=== PATIENT | male | born 1960 | race Caucasian/White ===

== ENCOUNTER 2016-07-01 14:47 | Emergency (ER) | payer BC, MEDICARE ==
[2016-07-01] MEDS: NS 0.9% 1000 ML* 2,000 ML IV ONE (16:33)
--- NOTE | 2016-07-01 16:58 | RAD ---
HISTORY: Altered mental status COMPARISONS: August 06, 2005 VIEWS:1: Single frontal portable view of the chest at 4:26 PM FINDINGS: LINES AND TUBES: None. CARDIOMEDIASTINAL SILHOUETTE: The cardiomediastinal silhouette is normal for portable technique. PLEURA: The costophrenic angles are sharp. No pleural abnormalities are noted. LUNG PARENCHYMA: The lungs are clear. ABDOMEN: The upper abdomen is clear. There is no subphrenic gas. BONES AND SOFT TISSUES: No bone or soft tissue abnormalities are noted. IMPRESSION: NO ACTIVE CARDIOPULMONARY DISEASE.
--- NOTE | 2016-07-01 16:59 | RAD ---
HISTORY: Headache, weakness COMPARISONS: None TECHNIQUE: Multiple contiguous axial CT scans were obtained of the head without intravenous contrast. FINDINGS: HEMORRHAGE/INFARCT: There is no hemorrhage or acute infarct. MASSES/SHIFT: There is no mass or shift. EXTRA-AXIAL SPACES: There are no extra-axial fluid collections. SULCI AND VENTRICLES: The sulci and ventricles are normal in size and position for the patient's stated age. CEREBRUM: There are no focal parenchymal abnormalities. BRAINSTEM: There are no focal parenchymal abnormalities. CEREBELLUM: There are no focal parenchymal abnormalities. VESSELS: The vessels are grossly normal. PARANASAL SINUSES: There is mucosal thickening of ethmoid air cells and right maxillary sinus. ORBITS: The orbits are unremarkable. BONES AND SOFT TISSUE: No bone or soft tissue abnormalities are noted. OTHER: None IMPRESSION: NO ACUTE INTRACRANIAL PATHOLOGY.
[2016-07-01 17:20] VITALS: BP 111/62
--- NOTE | 2016-07-01 17:23 | RAD ---
HISTORY: Neck pain COMPARISONS: September 23, 2007 TECHNIQUE: Multiple contiguous axial CT scans were obtained of the cervical spine without intravenous contrast, with coronal and sagittal multiplanar reformations. FINDINGS: BRAIN: The visualized brain is unremarkable CENTRAL CANAL: Evaluation of the central canal is limited on CT technique; however, there is no obvious canalicular mass or epidural hemorrhage. ALIGNMENT: There is a scoliotic curvature of the spine VERTEBRAL BODIES: There is multilevel anterolateral marginal osteophyte formation. JOINTS: There is diffuse uncovertebral and facet osteoarthritic changes MUSCULATURE: Unremarkable INTERVERTEBRAL DISCS: There is diffuse loss of intervertebral disc height. AXIAL IMAGES: There is osseous neural foraminal narrowing greater on the left on the right most pronounced at C5-C6 and C6-C7 SOFT TISSUES: The visualized soft tissues of the neck are unremarkable. The prevertebral fat stripe is preserved. OTHER: None. IMPRESSION: DEGENERATIVE DISC DISEASE AND OSTEOARTHRITIS
[2016-07-01 17:29] LABS: Hematocrit 44 % (42-52); Hemoglobin 14.2 g/dl (14.0-18.0); Mean Corpuscular HGB Conc 33 g/dl (31-36); Mean Corpuscular Hemoglobin 30 pg (27-31); Mean Corpuscular Volume 91 fL (80-94); Mean Platelet Volume 9 um3 (7.4-10.4); Red Cell Distribution Width 14 % (10.5-15); White Blood Count 13.3 10^3/ul (3.5-10.8)
[2016-07-01 17:42] LABS: ALT 12 U/L (7-52); Albumin 4.3 g/dL (3.2-5.2); Alkaline Phosphatase 46 U/L (34-104); BUN/Creatinine Ratio 13.1 (8-20); Blood Urea Nitrogen 11 mg/dL (6-24); C Reactive Protein 79.95 mg/L (< 5.00); CO2 Carbon Dioxide 27 mmol/L (22-32); Calcium 9.9 mg/dL (8.6-10.3); Chloride 101 mmol/L (101-111); Creatine Kinase 79 U/L (10-223); EGFR African American 121.1 (>60); EGFR Non-African American 94.2 (>60); Globulin 3.2 g/dL (2-4); Glucose 89 mg/dL (70-100); Lipase 22 U/L (11.0-82.0); Magnesium 2.1 mg/dL (1.9-2.7); Sodium 134 mmol/L (133-145); Total Protein 7.5 g/dL (6.4-8.9)
[2016-07-01 17:45] LABS: Urine Bilirubin Negative (Negative); Urine Glucose Negative (Negative); Urine Nitrite Negative (Negative)
[2016-07-01 17:55] LABS: TSH (Thyroid Stimulating Horm) 1.35 mcIU/mL (0.34-5.60)
--- NOTE | 2016-07-01 19:32 | ED ---
Desi Moreno Matthew, scribed for Chase Crum MD on 07/01/16 at 1635 . Altered Mental Status - HPI Summary HPI Summary: A 56 y/o male presents to the ED with confusion since 08:30 this morning. Associated symptoms include general weakness, inability to stand, diaphoresis, syncopal episodes, decreased vision bilaterally, diffuse headache - described as crushing, left arm weakness/numbness that's worse than normal and left leg weakness/numbness that worse than normal. The patient denies fever, chills, urinary symptoms, abdominal pain, and nausea. His symptoms worsen when standing. According to his , he was a Hx of neck injury with baseline left arm and leg weakness. The patient also has a Hx of COPD and emphysema. The patient states that he doesn't feel well. He wasn't unable to get out of bed or even hold a conversation today. He normally is completely alert and oriented x3. He's on xanax and metoprolol and his palpitations have been well controlled. - History Of Current Complaint Chief Complaint: EDWeakness Stated Complaint: AMS Time Seen by Provider: 07/01/16 15:57 Hx Obtained From: Patient, Family/Order Entry Specialist - Onset/Duration: Still Present Timing: Constant Severity Initially: Moderate Severity Currently: Moderate Character: Confusion Aggravating Factor(s): Other - Standing Associated Signs And Symptoms: Positive: Headache, Weakness - generalized as well as right ar. Negative: Nausea, Fever - Allergies/Home Medications Allergies/Adverse Reactions: Allergies Allergy/AdvReac Type Severity Reaction Status Date / Time novicane Allergy GI Upset Uncoded 03/05/12 20:23 PMH/Surg Hx/FS Hx/Imm Hx Endocrine/Hematology History: Denies: Hx Anticoagulant Therapy, Hx Diabetes, Hx Thyroid Disease Cardiovascular History: Denies: Hx Hypertension, Hx Pacemaker/ICD Respiratory History: Denies: Hx Asthma, Hx Chronic Obstructive Pulmonary Disease (COPD) GI History: Reports: Other GI Disorders - diverticulitis History: Denies: Hx Renal Disease Neurological History: Denies: Hx Dementia, Hx Seizures Psychiatric History: Denies: Hx Substance Abuse - Cancer History Cancer Type, Location and Year: neck pain Infectious Disease History: Yes Infectious Disease History: Denies: Hx Hepatitis, Hx Human Immunodeficiency Virus (HIV), Traveled Outside the [place] in Last 30 Days - Family History Known Family History: Positive: Cardiac Disease, Diabetes, Other - The patient is adopted and doesn't have an extensive FHx - Social History Alcohol Use: Occasionally Substance Use Type: Reports: None Smoking Status (MU): Current Every Day Smoker Review of Systems Positive: Skin Diaphoresis Eyes: Other - decreased vision; inability to stand ENT: Negative Cardiovascular: Negative Respiratory: Negative Gastrointestinal: Negative Negative: Abdominal Pain, Diarrhea, Nausea Genitourinary: Negative Positive: no symptoms reported Musculoskeletal: Negative Skin: Negative Positive: Headache - diffuse, Weakness - generalized; left arm; left leg, Syncope Psychological: Other - Confused All Other Systems Reviewed And Are Negative: Yes Physical Exam Triage Information Reviewed: Yes Vital Signs On Initial Exam: Initial Vitals Temp Pulse Resp BP Pulse Ox 98.4 F 75 16 101/59 99 07/01/16 14:50 07/01/16 14:50 07/01/16 14:50 07/01/16 14:50 07/01/16 14:50 Vital Signs Reviewed: Yes Appearance: Positive: Ill-Appearing Skin: Positive: Warm, Dry Head/Face: Positive: Normal Head/Face Inspection Eyes: Positive: Other: - The patient is indicating his vision is blurry ENT: Positive: Normal ENT inspection Neck: Positive: Supple, Nontender Respiratory/Lung Sounds: Positive: Clear to Auscultation, Breath Sounds Present Cardiovascular: Positive: RRR Abdomen Description: Positive: Nontender, Soft Bowel Sounds: Positive: Present Neurological: Positive: Other - Leg weakness bilaterally. He was able to move his right leg minimally, but unable to move the left leg; Left arm showed effort against gravity and the patient was barely able to left the arm off of the stretcher; however his right arm could move freely. - [place]ushing Coma Scale Coma Scale Total: 15 Diagnostics - Vital Signs Vital Signs Temp Pulse Resp BP Pulse Ox 07/01/16 15:59 67 15 94 07/01/16 15:30 73 20 117/61 98 07/01/16 15:27 76 98 07/01/16 15:26 109/64 07/01/16 14:50 98.4 F 75 16 101/59 99 - Laboratory Lab Results: Lab Results 07/01/16 07/01/16 07/01/16 Range/Units 15:45 15:45 15:45 WBC 13.3 H (3.5-10.8) 10^3/ul RBC 4.80 (4.0-5.4) 10^6/ul Hgb 14.2 (14.0-18.0) g/dl Hct 44 (42-52) % MCV 91 (80-94) fL MCH 30 (27-31) pg MCHC 33 (31-36) g/dl RDW 14 (10.5-15) % Plt Count 206 (150-450) 10^3/ul MPV 9 (7.4-10.4) um3 Neut % (Auto) 75.9 (38-83) % Lymph % (Auto) 15.6 L (25-47) % Dupage % (Auto) 7.4 (1-9) % Eos % (Auto) 0.8 (0-6) % Baso % (Auto) 0.3 (0-2) % Absolute Neuts (auto) 10.1 H (1.5-7.7) 10^3/ul Absolute Lymphs (auto) 2.1 (1.0-4.8) 10^3/ul Absolute Monos (auto) 1.0 H (0-0.8) 10^3/ul Absolute Eos (auto) 0.1 (0-0.6) 10^3/ul Absolute Basos (auto) 0 (0-0.2) 10^3/ul Absolute Nucleated RBC 0.01 10^3/ul Nucleated RBC % 0.1 INR (Anticoag Therapy) 1.02 (0.89-1.11) APTT 30.3 (26.0-36.3) seconds Sodium 134 (133-145) mmol/L Potassium TNP Chloride 101 (101-111) mmol/L Carbon Dioxide 27 (22-32) mmol/L Anion Gap TNP BUN 11 (6-24) mg/dL Creatinine 0.84 (0.67-1.17) mg/dL Est GFR ( Amer) 121.1 (>60) Est GFR (Non-Af Amer) 94.2 (>60) BUN/Creatinine Ratio 13.1 (8-20) Glucose 89 (70-100) mg/dL Calcium 9.9 (8.6-10.3) mg/dL Magnesium 2.1 (1.9-2.7) mg/dL Total Bilirubin 0.60 (0.2-1.0) mg/dL AST TNP ALT 12 (7-52) U/L Alkaline Phosphatase 46 (34-104) U/L Total Creatine Kinase 79 (10-223) U/L CK-MB (CK-2) 1.6 (0.6-6.3) ng/mL Troponin I 0.00 (<0.04) ng/mL C-Reactive Protein 79.95 H (< 5.00) mg/L B-Natriuretic Peptide ( - 100) pg/mL Total Protein 7.5 (6.4-8.9) g/dL Albumin 4.3 (3.2-5.2) g/dL Globulin 3.2 (2-4) g/dL Albumin/Globulin Ratio 1.3 (1-3) Lipase 22 (11.0-82.0) U/L TSH 1.35 (0.34-5.60) mcIU/mL Urine Color Urine Appearance Urine pH (5-9) Ur Specific [place] (1.010-1.030) Urine Protein (Negative) Urine Ketones (Negative) Urine Blood (Negative) Urine Nitrate (Negative) Urine Bilirubin (Negative) Urine Urobilinogen (Negative) Ur Leukocyte Esterase (Negative) Urine Glucose (Negative) 07/01/16 07/01/16 Range/Units 15:45 17:25 WBC (3.5-10.8) 10^3/ul RBC (4.0-5.4) 10^6/ul Hgb (14.0-18.0) g/dl Hct (42-52) % MCV (80-94) fL MCH (27-31) pg MCHC (31-36) g/dl RDW (10.5-15) % Plt Count (150-450) 10^3/ul MPV (7.4-10.4) um3 Neut % (Auto) (38-83) % Lymph % (Auto) (25-47) % Dupage % (Auto) (1-9) % Eos % (Auto) (0-6) % Baso % (Auto) (0-2) % Absolute Neuts (auto) (1.5-7.7) 10^3/ul Absolute Lymphs (auto) (1.0-4.8) 10^3/ul Absolute Monos (auto) (0-0.8) 10^3/ul Absolute Eos (auto) (0-0.6) 10^3/ul Absolute Basos (auto) (0-0.2) 10^3/ul Absolute Nucleated RBC 10^3/ul Nucleated RBC % INR (Anticoag Therapy) (0.89-1.11) APTT (26.0-36.3) seconds Sodium (133-145) mmol/L Potassium Chloride (101-111) mmol/L Carbon Dioxide (22-32) mmol/L Anion Gap BUN (6-24) mg/dL Creatinine (0.67-1.17) mg/dL Est GFR ( Amer) (>60) Est GFR (Non-Af Amer) (>60) BUN/Creatinine Ratio (8-20) Glucose (70-100) mg/dL Calcium (8.6-10.3) mg/dL Magnesium (1.9-2.7) mg/dL Total Bilirubin (0.2-1.0) mg/dL AST ALT (7-52) U/L Alkaline Phosphatase (34-104) U/L Total Creatine Kinase (10-223) U/L CK-MB (CK-2) (0.6-6.3) ng/mL Troponin I (<0.04) ng/mL C-Reactive Protein (< 5.00) mg/L B-Natriuretic Peptide 231 H ( - 100) pg/mL Total Protein (6.4-8.9) g/dL Albumin (3.2-5.2) g/dL Globulin (2-4) g/dL Albumin/Globulin Ratio (1-3) Lipase (11.0-82.0) U/L TSH (0.34-5.60) mcIU/mL Urine Color Straw Urine Appearance Clear Urine pH 7.0 (5-9) Ur Specific [place] 1.003 L (1.010-1.030) Urine Protein Negative (Negative) Urine Ketones Negative (Negative) Urine Blood Negative (Negative) Urine Nitrate Negative (Negative) Urine Bilirubin Negative (Negative) Urine Urobilinogen Negative (Negative) Ur Leukocyte Esterase Negative (Negative) Urine Glucose Negative (Negative) Result Diagrams: 07/01/16 15:45 07/01/16 15:45 Lab Statement: Any lab studies that have been ordered have been reviewed, and results considered in the medical decision making process. - Radiology CXR Xray Interpretation: No Acute Changes - IMPRESSION: NO ACTIVE CARDIOPULMONARY DISEASE. Radiology Interpretation Completed By: Radiologist - CT Brain CT CT Interpretation: No Acute Changes - IMPRESSION: NO ACUTE INTRACRANIAL PATHOLOGY. CT Interpretation Completed By: Radiologist C-Spine CT CT Interpretation: No Acute Changes - IMPRESSION: DEGENERATIVE DISC DISEASE AND OSTEOARTHRITIS CT Interpretation Completed By: Radiologist - EKG 15:11 Cardiac Rate: NL - 70 bpm EKG Rhythm: Sinus Rhythm Ectopy: None EKG Interpretation: Concave Up ST elevation in V3-V6 Re-Evaluation - Re-Evaluation First Eval Re-Evaluation Time: 18:16 Change: Improved Comment: The patient is alert and conversing. At the start of the re-evaluation the patient stated his headache was gone; however during our conversation his headache returned. He states that his headache lasts for approximately 10 minutes, then he feels sleepy and while sleeping his left shoulder twitches. This happens cyclically about every 40 minutes. Altered Mental Statu Course/Dx - Course Assessment/Plan: DR BECKMAN, NEUROLOGY WILL EVALUATE PATIENT IN ED. DISPOSITION PENDING AT SHIFT CHANGE. STABLE IN ED. - Diagnoses Discharge Diagnoses: Weakness, Headache - Provider Notifications Discussed Care Of Patient With: Dr. Payne (Hospitalist) at 18:19 -- Notified of patient's history. Dr. Ervin (Neurology) at 18:38 -- Notified of patient' s history and will evaluate the patient in the ED. Discharge - Discharge Plan Condition: Stable Disposition: OTHER Discharge Disposition Comment: C Referrals: No Primary Care Phys,NOPCP [Primary Care Provider] - The documentation as recorded by the Desi brandon Matthew accurately reflects the service I personally performed and the decisions made by me, Chaes Crum MD.
--- NOTE | 2016-07-01 21:12 | CONSULT ---
Consult Consult: 07/01/16 neurology consult 56 yo RHM, presenting since this am with a constellation of issues, including: confusion, intermittent headaches and diffuse visual changes (per the ED note; he did not bring this up at all), passing out (due to pain from a mónica anal pimple or abscess that he says is the main reason why he came to the ED in the first place, but which is not emphasized in the ED records), diffuse weakness ( superimposed on baseline chronic left sided sensorimotor asymmetry he attributes to a 2007 neck injury no surgery ormyelopathy on imaging, but on disability as a result of this issue). He at baseline ambulates indepently despite saying the left leg is , denies bulbar or bowel or bladder issues. He is on both metoprolol and Xanax for palpitations (latter not for anxiety). He is accompanied in the ED by multiple family members. Allergies/Meds - per jun PMH - copd, palpitations, bladder cancer (localized; surgery only) FH - adopted [place] - no etoh or drugs; positive tobacco use; disability as per hpi ROS - 10 point review as per hpi , otherwise negative general Examination: no apparent distress, no edema, male of stated age Neurologic Examination Mental Status: alert and oriented; affect flat but jocular at other times, no neglect, fluent speech Cranial Nerves: Funduscopy shows sharp discs; II-XII intact save mild 0.5mm pupillary asymmetry (both reactive, no Horners) and subjective left cheek sensory asymmetrey; whalen full to confrontation (psychomotor slowing with testing but accurate) Motor: normal bulk, tone; power testing diffusely poor effort/give way, more overtly on the left; intermittent left drift without pronation; no tremor Sensory: vibration and touch decreased left arm and leg Reflexes: 2 throughout symmetrically. 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 His head and cervical spine CT (and remote mri of latter) imaging is negative. He does have an elevated WBC and CRP and complains of a mónica rectal wound or infection that will require ED evaluation and appropriate treatment. From a neuro standpoint, his complaints and psychogenic and he can be discharged home.
--- NOTE | 2016-07-12 23:25 | ED ---
I, Adonis Robertson, scribed for Alex William MD on 07/01/16 at 2224 . Re-Evaluation - Re-Evaluation First Eval Re-Evaluation Time: 18:16 Change: Improved Comment: The patient is alert and conversing. At the start of the re-evaluation the patient stated his headache was gone; however during our conversation his headache returned. He states that his headache lasts for approximately 10 minutes, then he feels sleepy and while sleeping his left shoulder twitches. This happens cyclically about every 40 minutes. Course/Dx - Diagnoses Provider Diagnoses: Weakness, Headache - Provider Notifications Discussed Care Of Patient With: Dr. Payne (Hospitalist) at 18:19 -- Notified of patient's history. Dr. Ervin (Neurology) at 18:38 -- Notified of patient' s history and will evaluate the patient in the ED. The documentation as recorded by the sachaibMarcelo garay Michael accurately reflects the service I personally performed and the decisions made by me, Alex William MD.
== END 2016-07-01 22:35 | disposition home or self-care (01) ==
LOC: ED 14:47
DX: R53.1 Weakness (principal); R41.0 Disorientation, unspecified; R51 Headache; F17.210 Nicotine dependence, cigarettes, uncomplicated
CPT/HCPCS: 36415; 70450; 71010; 72125; 80053; 81003; 82550; 82553; 83605; 83690; 83735; 83880; 84443; 84484; 85025; 85610; 85730; 86140; 93005; 96360; 99282

== ENCOUNTER 2017-07-02 17:16 | Observation (INO) | payer MEDICARE ==
[2017-07-02] MEDS ORDERED: Aspirin TAB* 325 MG PO ONE (18:22)
--- NOTE | 2017-07-02 18:42 | RAD ---
INDICATION: 2 days of chest pain COMPARISON: Chest x-ray dated July 01, 2016 TECHNIQUE: Single AP portable view of the chest was obtained. FINDINGS: Image quality is compromised due to the relative inferiority of a portable chest x-ray. The heart and mediastinum exhibit normal size and contour. The lungs are grossly clear. There is no evidence of a large pleural effusion. Visualized bones are normal for the patient's age. IMPRESSION: No radiographic evidence for acute cardiopulmonary abnormality on this portable chest x-ray.
[2017-07-02 19:01] LABS: ABS Basophils 0.1 10^3/ul (0-0.2); ABS Eosinophils 0.3 10^3/ul (0-0.6); ABS Monocytes 0.8 10^3/ul (0-0.8); ABS Neutrophils 4.8 10^3/ul (1.5-7.7); ABS Nucleated RBC 0 10^3/ul; Eosinophil % 3.5 % (0-6); Hematocrit 41 % (42-52); Lymphocyte % 33.4 % (25-47); Mean Corpuscular HGB Conc 35 g/dl (31-36); Mean Corpuscular Hemoglobin 31 pg (27-31); Mean Corpuscular Volume 90 fL (80-94); Nucleated Red Blood Cells % 0; Platelet Count 193 10^3/ul (150-450); Red Blood Count 4.53 10^6/ul (4.0-5.4); Red Cell Distribution Width 14 % (10.5-15)
[2017-07-02 19:08] LABS: INR 0.94 (0.77-1.02)
[2017-07-02 19:20] LABS: EGFR Non-African American 87.8 (>60)
--- NOTE | 2017-07-02 21:00 | ED ---
London Moreno Julia, scribed for Salvador Torres on 07/02/17 at 1808 . HPI Chest Pain - HPI Summary HPI Summary: This patient is a 57 year old M presenting to [facility] with a chief complaint of sudden palpitations and chest pressure gradually worsening for the two to three days becoming more frequent. He report chest pressure as if someone is sitting on his chest. He reports he has had sudden palpitations since 1993 with no clear diagnosis. Patient denies lower extremity edema and current pain. The patient rates the pain 6/10 in severity. Symptoms alleviated by medications. Symptoms return when medications wear off. Patient is prescribed metoprolol and alprazolam (.25mg x3 daily). Pt states previous catheterizations revealed no blockages. Pt denies hx of anxiety. Pt has hx of hypotension. - History of Current Complaint Chief Complaint: EDChestPainROMI Time Seen by Provider: 07/02/17 18:02 Hx Obtained From: Patient Onset/Duration: Started Hours Ago Timing: Intermittent Pain Intensity: 6 Pain Scale Used: 0-10 Numeric Character: Fast, Heaviness, Pressure/Squeezing Alleviating Factor(s): Medication Related History: Similar Episode/Dx as: - palpitations - Allergy/Home Medications Allergies/Adverse Reactions: Allergies Allergy/AdvReac Type Severity Reaction Status Date / Time novicane Allergy GI Upset Uncoded 03/05/12 20:23 Home Medications: Home Medications ALPRAZolam TAB* [Xanax TAB*] 0.25 mg PO TID PRN 07/02/17 [History Confirmed ] Acetaminophen [Acetaminophen Extra Strength] 500 mg PO Q4H PRN 07/02/17 [ History Confirmed 07/02/17] Albuterol HFA INHALER* [Ventolin HFA Inhaler*] 1 puff INH Q4H PRN 07/02/17 [ History Confirmed 07/02/17] HYDROcodone/ACETAMIN 5-325 MG* [[place] 5-325 TAB*] 1 tab PO Q4H PRN 07/02/17 [ History Confirmed 07/02/17] Metoprolol Tartrate TAB* [Lopressor TAB*] 50 mg PO TID 07/02/17 [History Confirmed 07/02/17] PMH/Surg Hx/FS Hx/Imm Hx Endocrine/Hematology History: Denies: Hx Anticoagulant Therapy, Hx Diabetes, Hx Thyroid Disease Cardiovascular History: Reports: Hx Hypotension Denies: Hx Hypertension, Hx Pacemaker/ICD Respiratory History: Denies: Hx Asthma, Hx Chronic Obstructive Pulmonary Disease (COPD) GI History: Reports: Other GI Disorders - diverticulitis History: Denies: Hx Renal Disease Neurological History: Denies: Hx Dementia, Hx Seizures Psychiatric History: Denies: Hx Anxiety, Hx Substance Abuse - Cancer History Cancer Type, Location and Year: neck pain Infectious Disease History: No Infectious Disease History: Denies: Hx Hepatitis, Hx Human Immunodeficiency Virus (HIV), Traveled Outside the [place] in Last 30 Days - Family History Known Family History: Positive: Cardiac Disease, Diabetes, Other - The patient is adopted and doesn't have an extensive FHx - Social History Alcohol Use: Occasionally Substance Use Type: Reports: None Smoking Status (MU): Current Every Day Smoker Review of Systems Positive: Palpitations, Chest Pain Negative: Edema All Other Systems Reviewed And Are Negative: Yes Physical Exam - Summary Physical Exam Summary: Appearance: Well appearing, no pain distress Skin: warm, dry, reflects adequate perfusion Head/face: normal Eyes: EOMI, ELIJAH ENT: normal Neck: supple, non-tender Respiratory: CTA, breath sounds present Cardiovascular: RRR, pulses symmetrical Abdomen: non-tender, soft Bowel: present Musculoskeletal: normal, strength/ROM intact Neuro: normal, sensory motor intact, A&Ox3 Triage Information Reviewed: Yes Vital Signs On Initial Exam: Initial Vitals Temp Pulse Resp BP Pulse Ox 99.3 F 79 20 100/55 96 07/02/17 17:23 07/02/17 17:23 07/02/17 17:23 07/02/17 17:23 07/02/17 17:23 Vital Signs Reviewed: Yes Diagnostics - Vital Signs Vital Signs Temp Pulse Resp BP Pulse Ox 07/02/17 17:23 99.3 F 79 20 100/55 96 - Laboratory Lab Results: Lab Results 07/02/17 07/02/17 07/02/17 Range/Units 18:38 18:38 18:38 WBC 9.0 (3.5-10.8) 10^3/ul RBC 4.53 (4.0-5.4) 10^6/ul Hgb 14.0 (14.0-18.0) g/dl Hct 41 L (42-52) % MCV 90 (80-94) fL MCH 31 (27-31) pg MCHC 35 (31-36) g/dl RDW 14 (10.5-15) % Plt Count 193 (150-450) 10^3/ul MPV 8.0 (7.4-10.4) um3 Neut % (Auto) 53.8 (38-83) % Lymph % (Auto) 33.4 (25-47) % [place] % (Auto) 8.6 H (0-7) % Eos % (Auto) 3.5 (0-6) % Baso % (Auto) 0.7 (0-2) % Absolute Neuts (auto) 4.8 (1.5-7.7) 10^3/ul Absolute Lymphs (auto) 3.0 (1.0-4.8) 10^3/ul Absolute Monos (auto) 0.8 (0-0.8) 10^3/ul Absolute Eos (auto) 0.3 (0-0.6) 10^3/ul Absolute Basos (auto) 0.1 (0-0.2) 10^3/ul Absolute Nucleated RBC 0 10^3/ul Nucleated RBC % 0 INR (Anticoag Therapy) 0.94 (0.77-1.02) APTT 23.5 L (26.0-36.3) seconds D-Dimer, Quantitative < 200 (Less Than 230) ng/mL Sodium (139-145) mmol/L Potassium (3.5-5.0) mmol/L Chloride (101-111) mmol/L Carbon Dioxide (22-32) mmol/L Anion Gap (2-11) mmol/L BUN (6-24) mg/dL Creatinine (0.67-1.17) mg/dL Est GFR ( Amer) (>60) Est GFR (Non-Af Amer) (>60) BUN/Creatinine Ratio (8-20) Glucose (70-100) mg/dL Lactic Acid (0.5-2.0) mmol/L Calcium (8.6-10.3) mg/dL Magnesium (1.9-2.7) mg/dL Total Bilirubin (0.2-1.0) mg/dL AST (13-39) U/L ALT (7-52) U/L Alkaline Phosphatase (34-104) U/L Troponin I (<0.04) ng/mL B-Natriuretic Peptide 32 ( - 100) pg/mL Total Protein (6.4-8.9) g/dL Albumin (3.2-5.2) g/dL Globulin (2-4) g/dL Albumin/Globulin Ratio (1-3) 07/02/17 07/02/17 Range/Units 18:38 18:38 WBC (3.5-10.8) 10^3/ul RBC (4.0-5.4) 10^6/ul Hgb (14.0-18.0) g/dl Hct (42-52) % MCV (80-94) fL MCH (27-31) pg MCHC (31-36) g/dl RDW (10.5-15) % Plt Count (150-450) 10^3/ul MPV (7.4-10.4) um3 Neut % (Auto) (38-83) % Lymph % (Auto) (25-47) % [place] % (Auto) (0-7) % Eos % (Auto) (0-6) % Baso % (Auto) (0-2) % Absolute Neuts (auto) (1.5-7.7) 10^3/ul Absolute Lymphs (auto) (1.0-4.8) 10^3/ul Absolute Monos (auto) (0-0.8) 10^3/ul Absolute Eos (auto) (0-0.6) 10^3/ul Absolute Basos (auto) (0-0.2) 10^3/ul Absolute Nucleated RBC 10^3/ul Nucleated RBC % INR (Anticoag Therapy) (0.77-1.02) APTT (26.0-36.3) seconds D-Dimer, Quantitative (Less Than 230) ng/mL Sodium 137 L (139-145) mmol/L Potassium 3.8 (3.5-5.0) mmol/L Chloride 104 (101-111) mmol/L Carbon Dioxide 26 (22-32) mmol/L Anion Gap 7 (2-11) mmol/L BUN 14 (6-24) mg/dL Creatinine 0.89 (0.67-1.17) mg/dL Est GFR ( Amer) 112.9 (>60) Est GFR (Non-Af Amer) 87.8 (>60) BUN/Creatinine Ratio 15.7 (8-20) Glucose 110 H (70-100) mg/dL Lactic Acid 0.9 (0.5-2.0) mmol/L Calcium 9.5 (8.6-10.3) mg/dL Magnesium 2.0 (1.9-2.7) mg/dL Total Bilirubin 0.50 (0.2-1.0) mg/dL AST 19 (13-39) U/L ALT 17 (7-52) U/L Alkaline Phosphatase 38 (34-104) U/L Troponin I 0.00 (<0.04) ng/mL B-Natriuretic Peptide ( - 100) pg/mL Total Protein 6.8 (6.4-8.9) g/dL Albumin 4.0 (3.2-5.2) g/dL Globulin 2.8 (2-4) g/dL Albumin/Globulin Ratio 1.4 (1-3) Result Diagrams: 07/02/17 18:38 07/02/17 18:38 Lab Statement: Any lab studies that have been ordered have been reviewed, and results considered in the medical decision making process. - Radiology CXR Radiology Interpretation Completed By: Radiologist - No radiographic evidence for acute cardiopulmonary abnormality on this portable chest x-ray. ED Physician has reviewed this report. - EKG 1726 Cardiac Rate: NL - at 66 BPM EKG Rhythm: Sinus Rhythm EKG Interpretation: early repolarization EKG Comparison: No Significant Change Re-Evaluation - Re-Evaluation 1 Re-Evaluation Time: 20:40 Comment: Discussed results with patient. Patient will be admitted. Chest Pain Course/Dx - Course Course Of Treatment: Pt presents with sudden palpitations and chest pressure gradually worsening for the two to three days becoming more frequent. He report chest pressure as if someone is sitting on his chest. He reports he has had sudden palpitations since 1993 with no clear diagnosis. Symptoms alleviated by medications. Bloodwork is WNL. EKG has no significant changes from previous EKG. CXR is unremarkable. Pt is given ASA. Dr. Pichardo agrees to admit pt. - Chest Pain Differential Diagnosis/HQI/PQRI: Acute ID, ACS, Chest Wall, Lower Respiratory Infection - Diagnoses Provider Diagnoses: Chest pain, rule out acute myocardial infarction, Unstable angina - Provider Notifications Discussed Care Of Patient With: Trever Pichardo - hospitalist Time Discussed With Above Provider: 20:20 Instructed by Provider To: Admit As Inpatient Discharge - Sign-Out/Discharge Documenting (check all that apply): Discharge - admit - Discharge Plan Condition: Fair Disposition: ADMITTED TO [facility] Referrals: No Primary Care Phys,NOPCP [Primary Care Provider] - - Billing Disposition and Condition Condition: FAIR Disposition: [facility] The documentation as recorded by the London brandon Julia accurately reflects the service I personally performed and the decisions made by Brian cardenas Emmanuel.
[2017-07-02] MEDS ORDERED: Ondansetron INJ* 2 MG/ML VIAL IV PRN (21:17)
[2017-07-02] MEDS ORDERED: Acetaminophen TAB* 325 MG PO PRN (21:17)
[2017-07-02] MEDS ORDERED: ALPRAZolam TAB* 0.25 MG PO PRN (21:20)
[2017-07-02] MEDS ORDERED: Albuterol HFA INHALER* 8 gm MDI INH PRN (21:20)
[2017-07-02] MEDS ORDERED: NS 0.9% 1000 ML* 1,000 ML IV SCH (21:30)
[2017-07-02] MEDS ORDERED: Aspirin 81 mg CHEW TAB* 81 MG TAB.CHEW ONE (21:33)
[2017-07-02] MEDS: Heparin VIAL(*) 5000 UNITS/ML VIAL (FIVE THOUSAND) SUBCUT SCH (23:15)
[2017-07-02] MEDS: Nicotine PATCH 21 MG/24 HR* PATCH TRANSDERM SCH (23:15)
[2017-07-02] MEDS ORDERED: HYDROcodone/ACETAMIN 5-325 MG* 1 TAB PO PRN (23:19)
--- NOTE | 2017-07-03 01:12 | HP ---
CC: Dr. Cameron* HISTORY AND PHYSICAL: DATE OF ADMISSION: 07/02/17 PRIMARY CARE PROVIDER: Dr. Cameron from [facility]. ATTENDING PHYSICIAN WHILE IN THE HOSPITAL: Dr. Trever Pichardo * (report dictated by Ld Levy NP). CHIEF COMPLAINT: 1. Palpitations. 2. Chest pain. HISTORY OF PRESENT ILLNESS: Mr. Patton is a 57-year-old male patient. He carries a history of COPD, who states that the last week he has been having increasing palpitations and he also states that he has been having intermittent chest pressure. The patient states that the symptoms have been getting much worse and that he has been having increasing frequency of palpitations. He has had known palpitations for some time. He has been on beta-blockers t.i.d. for this. He states that yesterday he had discomfort and he had palpitations when he was working in his garage. He states he also noted that he has been having shortness of breath with exertion. He states he is continuing to smoke. He states the palpitations do not correlate with him exerting himself and he states the chest pressure happens during the palpitations and he said he did not have any exertional chest pain. He said that couple of nights ago, he was moving a four hollingsworth and pushing it up a ramp and what he got was really short of breath, but he did not get palpitations, he did not get chest pain with this. He did admit to having no nausea, no diaphoresis. Denies having any abdominal pain. Denies any fevers or chills. There has been no cold symptoms or URI symptoms. Denies having any fevers or chills. The patient states that he was concerned because of the discomfort and he was evaluated because of the history of his smoking, his age. We were asked to evaluate for admission due to the fact that he is having chest discomfort and also palpitations. He is chest pain free now and not having any palpitations now. PAST MEDICAL HISTORY: Significant for: 1. COPD. 2. Bladder cancer. 3. Palpitations. PAST SURGICAL HISTORY: 1. The patient has had a heart catheterization. He was told that his arteries were clean. We will try to get those records. 2. He has had a tracheostomy due to complications from a saliva gland infection. 3. He has had bladder surgery. 4. He has had a cystoscopy. MEDICATIONS: The home meds include: 1. [place] 1 tablet every 4 hours as needed. 2. Tylenol 500 mg every 4 hours as needed. 3. Lopressor 50 mg p.o. t.i.d. 4. Ventolin 1 puff inhaled every 4 hours as needed. 5. Xanax 0.25 mg p.o. t.i.d. as needed. ALLERGIES TO MEDICATIONS: Include NOVOCAINE. FAMILY HISTORY: Unknown as he is adopted. SOCIAL HISTORY: He is still smoking about a pack a day for 44 years. He does not drink alcohol. He does it very rarely. His surrogate decision maker is his . REVIEW OF SYSTEMS: There is no documented fever. He denied having any significant weight change. There was no double vision. He denies having any ear discharge. There is no rhinorrhea. There was no sore throat, no thyroid enlargement. Denies having any chest pain. There is no orthopnea. He does admit to having dyspnea on exertion. He denies having any abdominal pain. There is no nausea, no vomiting, no dysuria, no frequency. There was no seizure , no loss of consciousness, no pruritus, and no skin ulcerations. Review of 14 systems was completed, all others negative. PHYSICAL EXAMINATION GENERAL: At this time, Mr. Patton is a 57-year-old male patient. He appears to be well nourished, well developed. He does not appear to be in any acute distress. VITAL SIGNS: Blood pressure 111/66, pulse 68, respirations 18, O2 saturation 96 %, temperature 99.3. HEENT: Head: Atraumatic, normocephalic. Eyes: EOMs are intact. Sclerae anicteric and not pale. Throat: Oral mucosa appears to be moist. No oropharyngeal erythema. NECK: Supple. LUNGS: Clear to auscultation bilaterally. There was no wheezes, rales, or rhonchi. HEART: Sounds S1, S2. Regular rate and rhythm. No murmurs, rubs, or gallops. ABDOMEN: Soft. It was flat, nontender. Bowel sounds were present. EXTREMITIES: Pulses were 2+ throughout. The patient was moving all 4 extremities with 5/5 strength. NEUROLOGICAL: The patient is awake, he is alert, he is oriented x3. Tongue midline. Supervisor Counseling And Guidance are equal. No gross focal deficits. SKIN: Intact. DIAGNOSTIC STUDIES/LAB DATA: WBC 9.0, RBC of 4.53, hemoglobin 14.0, hematocrit of 41, platelet count of 193. INR 0.94, PTT of 22.5. D-dimer less than 200. Sodium 137, potassium 3.8, chloride 104, bicarb 26, BUN 14, creatinine of 0.89, glucose 110, lactate 0.9, calcium 9.5, mag 2.0, albumin 4.0. Total bili is 0.5, AST 19, ALT 17, alk phos 30. Troponin 0. BNP 32, albumin 4. He did have a chest x-ray obtained today, which revealed no radiographic evidence for acute cardiopulmonary abnormality on his portable x-ray. There was an EKG obtained today as well, which showed a normal sinus rhythm, rate of 66, with LVH. He did have elevations in V4, 5 and 6 along with 2, 3, aVF, but if we look back previously, he has had that similar elevation, it looks like J point elevation, which he has had in the past. Old medical records were reviewed. ASSESSMENT AND PLAN: Mr. Patton is a 57-year-old male patient coming into the ED today with complaints of palpitations and chest discomfort. We were asked to evaluate for admission. He will be admitted under observation status for: 1. Chest pain. At this point, I will go ahead and put the patient on aspirin daily. Continue his beta-shital. We will check lipid panel, A1c, cycle his troponins. We will get 2 more troponins. We will get order of stress test tomorrow. We will order an EKG in the morning and we will continue to follow. 2. Palpitations. He will be placed on telemetry. His mag was stable. I am checking a TSH. We will go ahead and continue his beta-shital. Follow with primary. 3. Chronic obstructive pulmonary disease. Continue p.r.n. albuterol. 4. Tobacco abuse. I have ordered a nicotine patch. 5. Bladder cancer. Follow with primary. 6. DVT prophylaxis: He will be placed on heparin subcu. 7. Code status: Full code. 8. Fluids, electrolytes, and nutrition. He can have a heart healthy diet and he is n.p.o. after midnight. TIME SPENT: On the admission was 60 minutes, greater than half of the time spent [id number] with the patient obtaining my history and physical, other half the time was spent going over the plan of care with the patient and implementing the plan of care. I did discuss plan of care with my attending, Dr. Pichardo; he is in agreement. LD LEVY, FABIANO [id number]/[facility] #: [id number] CYN
[2017-07-03] MEDS: Heparin VIAL(*) 5000 UNITS/ML VIAL (FIVE THOUSAND) SUBCUT SCH (05:43)
[2017-07-03 05:44] LABS: ABS Basophils 0.1 10^3/ul (0-0.2); ABS Eosinophils 0.3 10^3/ul (0-0.6); ABS Lymphocytes 3.2 10^3/ul (1.0-4.8); ABS Monocytes 0.6 10^3/ul (0-0.8); ABS Neutrophils 3.8 10^3/ul (1.5-7.7); ABS Nucleated RBC 0 10^3/ul; Eosinophil % 4.1 % (0-6); Hematocrit 40 % (42-52); Hemoglobin 13.8 g/dl (14.0-18.0); Lymphocyte % 40.1 % (25-47); Mean Corpuscular HGB Conc 35 g/dl (31-36); Mean Corpuscular Hemoglobin 31 pg (27-31); Mean Corpuscular Volume 90 fL (80-94); Mean Platelet Volume 8.1 um3 (7.4-10.4); Nucleated Red Blood Cells % 0.4; Platelet Count 169 10^3/ul (150-450); Red Blood Count 4.41 10^6/ul (4.0-5.4); Red Cell Distribution Width 14 % (10.5-15); White Blood Count 8.1 10^3/ul (3.5-10.8)
[2017-07-03 05:52] LABS: INR 0.97 (0.77-1.02)
[2017-07-03 06:03] LABS: EGFR Non-African American 69.5 (>60)
[2017-07-03] MEDS ORDERED: Metoprolol Tartrate TAB* 50 mg PO SCH (09:00)
[2017-07-03] MEDS ORDERED: Aspirin 81 mg CHEW TAB* 81 MG TAB.CHEW PO SCH (09:00)
--- NOTE | 2017-07-03 11:26 | RAD ---
INDICATION: Chest pain COMPARISON: None TECHNIQUE: A single day SPECT protocol was utilized. Rest images were acquired following the intravenous injection of 10.6 millicuries of technetium 99m tetrofosmin. Pharmacologic stress images were acquired following the intravenous administration of 25.3 millicuries of technetium 99m tetrofosmin. The examination is limited by lack of CT attenuation correction. The patient had decreased arm mobility preventing this technology FINDINGS: There are no definitive defects of the stress-induced or fixed nature. The cardiac chamber size is normal. There are no wall motion abnormalities. The ejection fraction is calculated at 71 percent during stress. IMPRESSION: NO DEFINITIVE DEFECTS OF A STRESS-INDUCED OR FIXED NATURE. NORMAL WALL MOTION AND EJECTION FRACTION. ASSESSMENT: LOW-RISK Based on imaging criteria from ACC/AHA 2002 Guideline Update for the Management of Patients With Chronic Stable Angina Table 23. Noninvasive Risk Stratification. Reference. HIGH-RISK (GREATER THAN 3% ANNUAL MORTALITY RATE) - Severe resting left ventricular dysfunction (LVEF < 35%) - Severe exercise left ventricular dysfunction (exercise LVEF < 35%) - Stress-induced large perfusion defect (particularly if anterior) - Stress-induced multiple perfusion defects of moderate size - Large, fixed perfusion defect with LV dilation or increased lung uptake (thallium-201) - Stress-induced moderate perfusion defect with LV dilation or increased lung uptake (thallium-201) INTERMEDIATE-RISK (1%-3% ANNUAL MORTALITY RATE) - Mild/moderate resting left ventricular dysfunction (LVEF = 35% to 49%) - Stress-induced moderate perfusion defect without LV dilation or increased lung intake (thallium-201) LOW-RISK (LESS THAN 1% ANNUAL MORTALITY RATE) - Normal or small myocardial perfusion defect at rest or with stress
[2017-07-03] MEDS: Nicotine PATCH 21 MG/24 HR* PATCH TRANSDERM SCH (11:44)
[2017-07-03] MEDS ORDERED: Regadenoson* 0.4 MG/5 ML SYRINGE ONE (13:11)
[2017-07-03 14:37] VITALS: BP 122/57
[2017-07-03] MEDS ORDERED: Nicotine Patch Removal NOTE FOLLOW UP SCH (21:00)
--- NOTE | 2017-07-04 14:37 | DS ---
DISCHARGE SUMMARY: DATE OF ADMISSION: 07/02/17 DATE OF DISCHARGE: 07/03/17 ADMITTING PROVIDER: Ld Levy NP. ATTENDING PHYSICIAN: Alen Tee MD. PRIMARY CARE PROVIDER: Melchor Cameron MD from [place], [place] ([place]). CHIEF COMPLAINT: Chest pain, palpitations. PRINCIPAL DIAGNOSIS: Acute coronary syndrome ruled out; palpitations with observed occasional PVCs. HISTORY OF PRESENT ILLNESS AND HOSPITAL COURSE: Lynnette Patton is a 57-year-old male with past medical history of COPD, bladder cancer, intermittent palpitations, current smoker 1 pack per day. The patient was working in the garage on some lawn equipment when he started to have more frequent palpitations and some chest discomfort. He has had symptoms like this since 1993 for which he takes metoprolol 50 mg t.i.d. He often will hug himself tightly, bear down and cough to buhsra the palpitations. He reports a history of 2 Holter monitors, one 10 years ago and the other 3 years ago, which showed no concerning findings. He had not seen Dr. Hayes, his former circuit designer, in many years. His last echocardiogram was about 10 years ago. He had a left heart cath 3 years ago. Please see [facility] Ld Levy for full details. A couple of nights prior to admission, he was moving a four hollingsworth up a ramp and got really short of breath. The palpitations did not seem exertional. He was admitted for ACS rule out, had negative troponins x3 of 0.00, 0.00 and 0.00. He had LDL of 87, HDL 23.9, triglycerides of 519, A1c of 5.5. He had a low risk nuclear stress test with ejection fraction approximately 71% and no wall motion abnormalities or signs of ischemia of a fixed or inducible nature. He is being discharged with recommendation to follow up with Dr. Sanchez or another local circuit designer. He prefers an [place] based circuit designer rather than going back down to [place]. He also expresses desire to quit smoking and was prescribed nicotine patch. DISCHARGE MEDICATIONS: Include: 1. Nicotine patch 20 mg per 24 hours (new). 2. Acetaminophen 500 mg p.o. q.4 hours p.r.n. 3. Albuterol 1 puff inhaled q.4 hours p.r.n. 4. Xanax 0.25 mg p.o. t.i.d. 5. Posey 5/325 p.o. q.4 hours p.r.n. 6. Metoprolol tartrate 50 mg p.o. t.i.d. DISCHARGE DIET: Heart healthy. ACTIVITY LEVEL: No restrictions. FOLLOWUP: Please follow up with Dr. Melchor Cameron within 5 days of discharge and with the local circuit designer within 1 to 2 weeks of discharge. He was given a referral for Dr. Seema Sanchez. TIME SPENT ON DISCHARGE: 35 minutes. [id number]/[facility] #: [id number] MTDD
== END 2017-07-03 14:57 | disposition home or self-care (01) ==
LOC: ED 17:16 → MEDTELE 21:12
PROVIDERS: ADMIT Hospitalist; ATTEND Internal Medicine
DX: R07.9 Chest pain, unspecified (principal); R00.2 Palpitations; I49.3 Ventricular premature depolarization; J44.9 Chronic obstructive pulmonary disease, unspecified; R06.02 Shortness of breath; Z85.51 Personal history of malignant neoplasm of bladder; F17.210 Nicotine dependence, cigarettes, uncomplicated; Z79.899 Other long term (current) drug therapy; Z88.8 Allergy status to other drugs, medicaments and biological substances; R94.31 Abnormal electrocardiogram [ECG] [EKG]
CPT/HCPCS: 36415; 71045; 78452; 80048; 80053; 80061; 83036; 83605; 83721; 83735; 83880; 84443; 84484; 85025; 85379; 85610; 85730; 93005; 93017; 96372; 99284; 99406; A9270-GY; A9502; G0378; J1644; J2785

== ENCOUNTER 2019-05-09 17:33 | Emergency (ER) | payer MEDICARE ==
--- NOTE | 2019-05-09 17:46 | ED ---
Shortness of Breath - HPI Summary HPI Summary: Patient complains of productive cough, intermittent chest pain, shortness of breath 3 days. History of COPD, states albuterol inhaler has been working until today. Chest pain is diffuse, worse with cough. Denies fever, sore throat, DEJESUS, neck stiffness, N/V/D, abdominal pain, change in urine, change in BM. Stress test 07/03/17 negative. Medical history COPD. Former smoker. Denies EtOH or recreational drug use. - History of Current Complaint Chief Complaint: EDShortnessOfBreath Time Seen by Provider: 05/09/19 17:42 Hx Obtained From: Patient Onset/Duration: Gradual Onset, Lasting Days Timing: Constant Current Severity: Moderate Dyspnea At: Exertion Alleviating Factors: Bronchodilators Associated Signs & Symptoms: Cough (Productive) - Allergy/Home Medications Allergies/Adverse Reactions: Allergies Allergy/AdvReac Type Severity Reaction Status Date / Time procaine [From Novocain] Allergy GI Upset Verified 05/09/19 17:38 PMH/Surg Hx/FS Hx/Imm Hx Endocrine/Hematology History: Denies: Hx Anticoagulant Therapy, Hx Diabetes, Hx Thyroid Disease Cardiovascular History: Reports: Hx Angina, Hx Hypotension Denies: Hx Coronary Artery Disease, Hx Hypercholesterolemia, Hx Hypertension , Hx Myocardial Infarction, Hx Pacemaker/ICD, Hx Valvular Heart Disease Respiratory History: Reports: Hx Chronic Obstructive Pulmonary Disease (COPD) Denies: Hx Asthma GI History: Reports: Other GI Disorders - diverticulitis History: Denies: Hx Renal Disease Sensory History: Reports: Hx Contacts or Glasses Denies: Hx Hearing Aid Opthamlomology History: Reports: Hx Contacts or Glasses Neurological History: Denies: Hx Dementia, Hx Seizures Psychiatric History: Denies: Hx Anxiety, Hx Substance Abuse - Cancer History Cancer Type, Location and Year: neck pain Infectious Disease History: No Infectious Disease History: Denies: Hx Hepatitis, Hx Human Immunodeficiency Virus (HIV), Traveled Outside the [place] in Last 30 Days - Family History Known Family History: Positive: Cardiac Disease, Diabetes, Other - The patient is adopted and doesn't have an extensive FHx - Social History Alcohol Use: Occasionally Substance Use Type: Reports: None Smoking Status (MU): Current Every Day Smoker Review of Systems Constitutional: Negative Eyes: Negative ENT: Negative Positive: Chest Pain Positive: Shortness Of Breath, Cough Gastrointestinal: Negative Genitourinary: Negative Musculoskeletal: Negative Skin: Negative Neurological: Negative Psychological: Normal All Other Systems Reviewed And Are Negative: Yes Physical Exam Triage Information Reviewed: Yes Vital Signs On Initial Exam: Initial Vitals Temp Pulse Resp BP Pulse Ox 99.6 F 84 16 101/66 96 05/09/19 17:35 05/09/19 17:35 05/09/19 17:35 05/09/19 17:35 05/09/19 17:35 Vital Signs Reviewed: Yes Appearance: Positive: Well-Appearing Skin: Positive: Warm Head/Face: Positive: Normal Head/Face Inspection Eyes: Positive: Normal Neck: Positive: Supple Respiratory/Lung Sounds: Positive: Wheezes Cardiovascular: Positive: Normal Abdomen Description: Positive: Nontender Musculoskeletal: Positive: Normal Neurological: Positive: Normal Psychiatric: Positive: Normal AVPU Assessment: Alert - [place] Coma Scale Best Eye Response: 4 - Spontaneous Best Motor Response: 6 - Obeys Commands Best Verbal Response: 5 - Oriented Coma Scale Total: 15 Procedures - Sedation Patient Received Moderate/Deep Sedation with Procedure: No Diagnostics - Vital Signs Vital Signs Temp Pulse Resp BP Pulse Ox 05/09/19 17:35 99.6 F 84 16 101/66 96 - Laboratory Result Diagrams: 05/09/19 17:58 05/09/19 17:58 Lab Statement: Any lab studies that have been ordered have been reviewed, and results considered in the medical decision making process. Course/Dx - Course Course Of Treatment: Patient complains of productive cough, intermittent chest pain, shortness of breath 3 days. History of COPD, states albuterol inhaler has been working until today. Chest pain is diffuse, worse with cough. Denies fever, sore throat, DEJESUS, neck stiffness, N/V/D, abdominal pain, change in urine, change in BM. Stress test 07/03/17 negative. Medical history COPD. Former smoker. Denies EtOH or recreational drug use. Vital signs within normal limits. CRP 33. Labs otherwise unremarkable. EKG sinus rhythm, heart rate of 80, LVH, same as prior. - Diagnoses Provider Diagnoses: Flu, COPD (chronic obstructive pulmonary disease) Discharge ED - Sign-Out/Discharge Documenting (check all that apply): Patient Departure - Discharge Plan Condition: Stable Disposition: HOME Patient Education Materials: Influenza (ED), COPD (Chronic Obstructive Pulmonary Disease) (ED) Referrals: Rakesh CAMPO,Melchor Shin [Primary Care Provider] - Additional Instructions: Take Tamiflu twice a day as directed for flu. Take prednisone once daily as directed. Use your inhaler as directed. Follow-up with primary care. Return to the ED for any new or worsening symptoms. - Billing Disposition and Condition Condition: STABLE Disposition: Home
[2019-05-09] MEDS ORDERED: Albuterol/Ipratropium NEB.SOL* Albuterol 2.5 MG/Ipratropium 0.5 MG 3 ML INH ONE ×2 (17:48→19:08)
[2019-05-09 18:17] LABS: ABS Eosinophils 0.2 10^3/ul (0-0.6); ABS Lymphocytes 1.1 10^3/ul (1.0-4.8); ABS Monocytes 0.7 10^3/ul (0-0.8); ABS Neutrophils 3.4 10^3/ul (1.5-7.7); Eosinophil % 2.9 %; Hematocrit 42 % (42-52); Hemoglobin 14.7 g/dL (14.0-18.0); Lymphocyte % 20.5 %; Mean Corpuscular HGB Conc 35 g/dL (31-36); Mean Corpuscular Hemoglobin 31 pg (27-31); Mean Corpuscular Volume 89 fL (80-94); Mean Platelet Volume 7.6 fL (7.4-10.4); Platelet Count 184 10^3/uL (150-450); Red Blood Count 4.69 10^6 /uL (4.18-5.48); Red Cell Distribution Width 14 % (10-15); White Blood Count 5.3 10^3/uL (3.5-10.8)
[2019-05-09 18:30] LABS: Albumin/Globulin Ratio 1.4 (1-3); BUN/Creatinine Ratio 15.4 (8-20); C Reactive Protein 33.48 mg/L (<8.01); Calcium 8.7 mg/dL (8.6-10.3); EGFR African American 88.4 (>60); EGFR Non-African American 73.1 (>60); Globulin 2.8 g/dL (2-4); Total Bilirubin 0.5 mg/dL (0.2-1.0); Total Protein 6.8 g/dL (6.4-8.9)
[2019-05-09 18:31] LABS: Troponin I 0.01 ng/mL (<0.03)
[2019-05-09 19:06] LABS: HIV 4th Generation Nonreactive (Nonreactive)
[2019-05-09 19:40] LABS: Influenza A Molecular POSITIVE (Negative)
[2019-05-09] MEDS ORDERED: NS 0.9% 1000 ML** 1,000 ML IV ONE (19:49)
[2019-05-09] MEDS ORDERED: Oseltamivir CAP* 75 MG CAP PO ONE (19:49)
[2019-05-09] MEDS ORDERED: Albuterol HFA INHALER* 8 gm MDI INH ONE (21:33)
[2019-05-09 21:48] VITALS: BP 115/62
== END 2019-05-09 21:47 | disposition home or self-care (01) ==
LOC: ED 17:33
DX: J11.1 Influenza due to unidentified influenza virus with other respiratory manifestations (principal); J44.9 Chronic obstructive pulmonary disease, unspecified; Z88.4 Allergy status to anesthetic agent; Z87.891 Personal history of nicotine dependence
CPT/HCPCS: 36415; 71046; 80053; 82375; 82803; 84484; 85025; 86140; 87389; 93005; 96360; 96361; 99283; A9270-GY; J7512

== ENCOUNTER 2019-07-22 15:20 | Emergency (ER) | payer MEDICARE ==
[2019-07-22] MEDS ORDERED: Morphine 4 MG/ML VIAL (1 ml) 4 MG/ML VIAL IV ONE (16:23)
[2019-07-22] MEDS ORDERED: NS 0.9% 1000 ML** 1,000 ML IV ONE (16:23)
--- NOTE | 2019-07-22 16:36 | ED ---
Abdominal Pain/Male - HPI Summary HPI Summary: 59 year old M presenting to [facility] via private car with a chief complaint of lower right abdominal pain since Friday07/18/2019. Patient states that he was doing work on Friday when he started to have abdominal pain after sitting down. The pain resolved for a short period of time after immediately standing up, but then returned after sitting down again. He notes that he was not doing any heavy lifting at the time. Pain has progressively worsened since onset, patient came into the ED today due to the severity of the pain. He notes that the pain waxes and wanes, noting it can range from 0/10 to "11/10". The patient took Tylenol for the pain with no relief. Patients symptoms are somewhat relieved when lying flat on his back. Patient additionally states that he has lower back pain and that he experiences pain from his lower right abdomen down to his suprapubic area when he urinates. He has also noticed an increase in urgency to urinate. Patient states that his bowel movements are normal and denies hematuria and dysuria. He also denies fevers, chills, nausea, vomiting and decreased appetite. 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 Patient denies having surgery in his abdomen. Patient does not drink soda, but drinks a lot of coffee. Patient is currently taking metoprolol, and alprazolam. Patient smokes cigarettes but denies drinking alcohol or using recreational drugs. He has no known allergies. Home Medications Medication Instructions Recorded Confirmed Type ALPRAZolam TAB* [Xanax TAB*] 0.25 mg PO TID PRN 07/02/17 07/02/17 History Acetaminophen [Acetaminophen Extra 500 mg PO Q4H PRN 07/02/17 07/02/17 History Strength] Albuterol HFA INHALER* [Ventolin 1 puff INH Q4H PRN 07/02/17 07/02/17 History HFA Inhaler*] HYDROcodone/ACETAMIN 5-325 MG* 1 tab PO Q4H PRN 07/02/17 07/02/17 History [Chinle 5-325 TAB*] Metoprolol Tartrate TAB* 50 mg PO TID 07/02/17 07/02/17 History [Lopressor TAB*] Nicotine PATCH 21 MG/24 HR* 1 patch TRANSDERM DAILY #30 patch 07/03/17 Rx Oseltamivir Phosphate [Tamiflu] 75 mg PO BID 5 Days #10 capsule 05/09/19 Rx predniSONE 20 mg TAB [Deltasone 20 40 mg PO DAILY 5 Days #10 tab 05/09/19 Rx MG TAB*] - History of Current Complaint Chief Complaint: EDAbdPain Stated Complaint: RT SIDE PAIN PER PT Time Seen by Provider: 07/22/19 16:11 Hx Obtained From: Patient Onset/Duration: Lasting Days - Pain since Friday07/18/2019. Severity Currently: Moderate Pain Intensity: 7 Pain Scale Used: 0-10 Numeric Location: Discrete At: RLQ Radiates: Yes Radiates to: Other - Pain radiates down to suprapubic area when urinating. Aggravating Factor(s): Other: - Symptoms aggravated when sitting down. Alleviating Factor(s): Nothing - Patient took Tylenol with no relief. Associated Signs And Symptoms: Positive: Back Pain, Urinary Symptoms - Increase in urgency to urinate.. Negative: Fever, Decreased Appetite, Nausea, Vomiting, Other - Patient denies chills. - Allergies/Home Medications Allergies/Adverse Reactions: Allergies Allergy/AdvReac Type Severity Reaction Status Date / Time procaine [From Novocain] Allergy GI Upset Verified 07/22/19 15:35 Home Medications: Home Medications ALPRAZolam TAB* [Xanax TAB*] 0.25 mg PO TID PRN 07/02/17 [History Confirmed ] Acetaminophen [Acetaminophen Extra Strength] 500 mg PO Q4H PRN 07/02/17 [ History Confirmed 07/22/19] Albuterol HFA INHALER* [Ventolin HFA Inhaler*] 1 puff INH Q4H PRN 07/02/17 [ History Confirmed 07/22/19] Metoprolol Tartrate TAB* [Lopressor TAB*] 50 mg PO TID 07/02/17 [History Confirmed 07/22/19] PMH/Surg Hx/FS Hx/Imm Hx Endocrine/Hematology History: Denies: Hx Anticoagulant Therapy, Hx Diabetes, Hx Thyroid Disease Cardiovascular History: Reports: Hx Angina, Hx Hypotension, Other Cardiovascular Problems/Disorders - HEART ARRYTHMIA PER PT Denies: Hx Coronary Artery Disease, Hx Hypercholesterolemia, Hx Hypertension , Hx Myocardial Infarction, Hx Pacemaker/ICD, Hx Valvular Heart Disease Respiratory History: Reports: Hx Chronic Obstructive Pulmonary Disease (COPD), Other Respiratory Problems/Disorders - HX PNA Denies: Hx Asthma GI History: Reports: Other GI Disorders - diverticulitis History: Denies: Hx Renal Disease Sensory History: Reports: Hx Contacts or Glasses Denies: Hx Hearing Aid Opthamlomology History: Reports: Hx Contacts or Glasses Neurological History: Denies: Hx Dementia, Hx Seizures Psychiatric History: Denies: Hx Anxiety, Hx Substance Abuse - Cancer History Cancer Type, Location and Year: neck pain Infectious Disease History: No Infectious Disease History: Denies: Hx Hepatitis, Hx Human Immunodeficiency Virus (HIV), Traveled Outside the [place] in Last 30 Days - Family History Known Family History: Positive: Cardiac Disease, Diabetes, Other - The patient is adopted and doesn't have an extensive FHx - Social History Alcohol Use: Occasionally Substance Use Type: Reports: None Smoking Status (MU): Light Every Day Tobacco Smoker Review of Systems Negative: Fever, Chills Positive: Abdominal Pain - RLQ pain. , Other - no decreased appetite . Negative : Vomiting, Nausea Positive: urgency - Increase in urgency to urinate. . Negative: dysuria, hematuria All Other Systems Reviewed And Are Negative: Yes Physical Exam - Summary Physical Exam Summary: Constitutional: Well-developed, Well-nourished, Alert. (-) Distressed Skin: Warm, Dry HENT: Normocephalic; Atraumatic Eyes: Conjunctiva normal Neck: Musculoskeletal ROM normal neck. (-) JVD, (-) Stridor, (-) Tracheal deviation Cardio: Rhythm regular, rate normal, Heart sounds normal; Intact distal pulses; Radial pulses are 2+ and symmetric. (-) Murmur Pulmonary/Chest wall: Effort normal. (-) Respiratory distress, (-) Wheezes, (-) Rales Abd: Soft, (-) tenderness, (-) Distension, (-) Guarding, (-) Rebound. Suprapubic tenderness present. RLQ point tenderness present. No inguinal hernia detected when palpated. Musculoskeletal: (-) Edema Lymph: (-) Cervical adenopathy Neuro: Alert, Oriented x3 Psych: Mood and affect Normal Triage Information Reviewed: Yes Vital Signs On Initial Exam: Initial Vitals Temp Pulse Resp BP Pulse Ox 97.9 F 72 14 126/72 99 07/22/19 15:30 07/22/19 15:30 07/22/19 15:30 07/22/19 15:30 07/22/19 15:30 Vital Signs Reviewed: Yes Procedures - Sedation Patient Received Moderate/Deep Sedation with Procedure: No Diagnostics - Vital Signs Vital Signs Temp Pulse Resp BP Pulse Ox 07/22/19 15:30 97.9 F 72 14 126/72 99 - Laboratory Result Diagrams: 07/22/19 16:50 07/22/19 16:50 Lab Statement: Any lab studies that have been ordered have been reviewed, and results considered in the medical decision making process. Abdominal Pain Male Course/Dx - Course Course Of Treatment: Patient is here with right lower quadrant pain and urinary urgency. Patient's had symptoms for 5 days. Patient's pain is worse when he stands and gets better when he lays down. Patient had no evidence of an inguinal hernia on exam. Patient's abdominal exam was consistent with tenderness in the right lower quadrant and suprapubic region. Patient had blood work performed which was grossly unremarkable. Patient's UA shows no evidence of hematuria or infection. Just prior to CT scan, patient states that his brother who is identical to him has anaphylaxis to contrast dye and does not want to get contrast dye. Patient was signed out to Dr. Vitale pending CT scan results. - Diagnoses Provider Diagnoses: Right lower quadrant abdominal pain, Urinary urgency - Critical Care Time Critical Care Statement: Critical care time is provided exclusive of any time spent performing procedures. Discharge ED - Sign-Out/Discharge Documenting (check all that apply): Sign-Out Patient Signing out patient TO: Amelia Vitale - Discharge Plan Condition: Stable Referrals: Rakesh CAMPO,Melchor Shin [Primary Care Provider] - - Billing Disposition and Condition Condition: STABLE - Attestation Statements Document Initiated by Scribe: Yes Documenting Scribe: Izabella Leung Provider For Whom Page is Documenting (Include Credential): Giorgio Justice MD Scribe Attestation: Izabella Moreno , scribed for Giorgio Justice MD on 07/22/19 at 1750. Scribe Documentation Reviewed: Yes Provider Attestation: The documentation as recorded by the sachaibjarrod, Izabella Shikha and Scott Kolenda accurately reflects the service I personally performed and the decisions made by me, Giorgio Justice MD Status of Scribe Document: Viewed
[2019-07-22 16:47] LABS: Urine Appearance Clear; Urine Bilirubin Negative (Negative); Urine Blood Negative (Negative); Urine Color Straw; Urine Glucose Negative (Negative); Urine Ketones Negative (Negative); Urine Nitrite Negative (Negative); Urine Protein Negative (Negative); Urine Specific Gravity 1.004 (1.010-1.030); Urine Urobilinogen Negative (Negative)
[2019-07-22 17:00] LABS: ABS Basophils 0.1 10^3/ul (0-0.2); ABS Eosinophils 0.2 10^3/ul (0-0.6); ABS Lymphocytes 2.3 10^3/ul (1.0-4.8); ABS Monocytes 0.6 10^3/ul (0-0.8); ABS Neutrophils 4.3 10^3/ul (1.5-7.7); Eosinophil % 2.8 %; Hematocrit 43 % (42-52); Hemoglobin 14.8 g/dL (14.0-18.0); Lymphocyte % 30.9 %; Mean Corpuscular HGB Conc 34 g/dL (31-36); Mean Corpuscular Hemoglobin 31 pg (27-31); Mean Corpuscular Volume 90 fL (80-94); Mean Platelet Volume 7.3 fL (7.4-10.4); Nucleated Red Blood Cells % 0.1; Platelet Count 216 10^3/uL (150-450); Red Blood Count 4.77 10^6 /uL (4.18-5.48); Red Cell Distribution Width 15 % (10-15); White Blood Count 7.5 10^3/uL (3.5-10.8)
[2019-07-22 17:16] LABS: Albumin 4.1 g/dL (3.2-5.2); Albumin/Globulin Ratio 1.5 (1-3); BUN/Creatinine Ratio 15.3 (8-20); C Reactive Protein 4.71 mg/L (<8.01); Calcium 9.4 mg/dL (8.6-10.3); EGFR African American 111.3 (>60); EGFR Non-African American 91.9 (>60); Globulin 2.7 g/dL (2-4); Potassium 4.3 mmol/L (3.5-5.0); Total Bilirubin 0.6 mg/dL (0.2-1.0); Total Protein 6.8 g/dL (6.4-8.9)
[2019-07-22] MEDS ORDERED: Iohexol 300* (CONTRAST) 10 ML SDV IV ONE (17:25)
--- NOTE | 2019-07-22 18:00 | ED ---
Progress - Progress Note Progress Note: Patient signed out by Dr. Justice to Dr. Vitale at shift change on 07/22/2019 pending Abdomen/Pelvis CT and disposition. Abdomen/Pelvis CT Impression: 1. No focal inflammatory process identified. 2. Prostatomegaly. ED physician has reviewed this report. Course/Dx - Course Course Of Treatment: Patient is here with right lower quadrant pain and urinary urgency. Patient's had symptoms for 5 days. Patient's pain is worse when he stands and gets better when he lays down. Patient had no evidence of an inguinal hernia on exam. Patient's abdominal exam was consistent with tenderness in the right lower quadrant and suprapubic region. Patient had blood work performed which was grossly unremarkable. Patient's UA shows no evidence of hematuria or infection. Just prior to CT scan, patient states that his brother who is identical to him has anaphylaxis to contrast dye and does not want to get contrast dye. Patient was signed out to Dr. Vitale pending CT scan results. - Diagnoses Provider Diagnoses: Right lower quadrant abdominal pain, Urinary urgency, Enlarged prostate - Critical Care Time Critical Care Statement: Critical care time is provided exclusive of any time spent performing procedures. Discharge ED - Sign-Out/Discharge Documenting (check all that apply): Patient Departure, Receiving Sign-Out Receiving patient FROM: Randell Justice - Pending Abdomen/Pelvis CT and disposition. - Discharge Plan Condition: Stable Disposition: HOME Patient Education Materials: Enlarged Prostate (BPH) (ED) Referrals: Rakesh CAMPO,Melchor Shin [Primary Care Provider] - Additional Instructions: You were seen in the emergency department for Rodríguez pain. Your CT scan showed enlarged prostate otherwise no abnormalities. Your urine did not show any evidence of infection. Please follow up with your primary care doctor in next 2-3 days and return to emergency department for worsening pain, or concerning symptoms. It was a pleasure taking care of you today. - Billing Disposition and Condition Condition: STABLE Disposition: Home - Attestation Statements Document Initiated by Scribe: Yes Documenting Scribe: Gabriela Brantley Provider For Whom Scribe is Documenting (Include Credential): Amelia Vitale MD Scribe Attestation: Gabriela Moreno, scribed for Amelia Vitale MD on 07/22/19 at 1915. Scribe Documentation Reviewed: Yes Provider Attestation: The documentation as recorded by the scribe, Gabriela Brantley accurately reflects the service I personally performed and the decisions made by me, Amelia Vitale MD Status of Scribe Document: Viewed
[2019-07-22 19:07] VITALS: BP 137/63
== END 2019-07-22 18:55 | disposition home or self-care (01) ==
LOC: ED 15:20
DX: R10.31 Right lower quadrant pain (principal); N40.0 Benign prostatic hyperplasia without lower urinary tract symptoms; R39.15 Urgency of urination; Z79.899 Other long term (current) drug therapy; Z79.52 Long term (current) use of systemic steroids; F17.210 Nicotine dependence, cigarettes, uncomplicated
CPT/HCPCS: 36415; 74177; 80053; 81003; 83690; 85025; 86140; 96361; 96374; 99282; J2270; Q9967